=== PATIENT | female | born 1940 | race Two or more races ===

== ENCOUNTER 2017-03-30 13:52 | Outpatient (CLI) | payer MEDICARE, OTHER ==
[~2017-03-30 13:52] MED LIST: CALCIUM 500 +1 EAC7 PO; FISH OIL CAP1000 MG ORAL; HYDROCHLOROTHIA25 MG ORAL
[2017-03-30 14:21] VITALS: BP 148/61
[2017-03-30] MEDS ORDERED: LOSARTAN POTASS50 MG ORAL (14:28)
[2017-03-30] MEDS ORDERED: OMEPRAZOLE40 M1 ORAL (14:28)
[2017-03-30] MEDS ORDERED: IBUPROFEN600 MG ORAL (14:28)
[2017-03-30] MEDS ORDERED: ECOTRIN81 MG PO (14:28)
[2017-03-30] MEDS ORDERED: DICLOFENAC SOD100 G1 TP (14:28)
--- NOTE | 2017-03-30 15:29 | GI Initial Consult Note ---
Gina Delgado N.PAlyssa 03/30/17 1529: History of Present Illness General Date patient seen: Mar 30, 2017 Time patient seen: 15:20 Referring physician: FUENTES DAVILA Reason for Consultation: ANEMIA Present Illness HPI 76 year old female patient referred by Dr. Davila to evaluate anemia; Hgb drop to 10.8. She presents today with no general GI complaints. Noted on labs to have iron deficiency. Last colonoscopy was in 09/2014 with no evidence of polyps, diverticulosis, internal hemorrhoids. No changes in bowel habits. Denies weight loss. Home Meds Reported Medications Omeprazole (OMEPRAZOLE) 40 Mg Capsule.dr, 40 MG ORAL DAILY, CAP 03/30/17 Ibuprofen* (MOTRIN*) 600 Mg Tablet, 400 MG ORAL PRN Y for For Pain, #30 TAB 03/30/17 Aspirin (ECOTRIN) 81 Mg Tablet.dr, 81 MG PO DAILY, TAB 03/30/17 Losartan Potassium* (LOSARTAN POTASSIUM*) 50 Mg Tablet, 50 MG ORAL DAILY, TAB 03/30/17 Diclofenac Sodium (Diclofenac Sodium) 100 Gm Gel..gram., 100 GM TP PRN, GM 03/30/17 Fish Oil (Fish Oil 1,000 mg Capsule) 1,000 Mg Cap, 1000 MG ORAL BID, CAP 07/30/14 Hydrochlorothiazide* (HYDROCHLOROTHIAZIDE*) 25 Mg Tablet, 25 MG ORAL DAILY, TAB 07/30/14 Discontinued Reported Medications Calcium Carbonate/Vitamin D3 (Calcium 500 + Vit D3 400 Tab) 1 Each Tablet, 1 EACH PO DAILY, TAB 07/30/14 Med list reviewed/reconciled: Yes Allergies: Coded Allergies: No Known Allergies (Unverified , 07/29/14) Patient History History Provided By: Patient, Medical Record PMH Narrative HTN elevated cholesterol osteopenia h/o of colonic polyps anemia tubular adenoma of colon PSHx Biopsy breast (april 2014) Social History: Denies: alcohol use, drug use, other, smoking Review of Systems All Other Systems: limited Physical Exam Vital Signs Date Time Temp Pulse Resp B/P Pulse Ox O2 Delivery O2 Flow Rate FiO2 03/30/17 14:21 97.8 64 16 148/61 100 Sp02 EP Interpretation: reviewed General Appearance: well appearing, no apparent distress, alert Head: normocephalic EENT: normal ENT inspection Neck: full range of motion, supple Respiratory: normal breath sounds, no respiratory distress Cardiovascular: normal peripheral pulses, normal rate Gastrointestinal: normal inspection, non tender, soft, normal bowel sounds Genitourinary: normal inspection Neurologic: normal inspection, alert, oriented x3, responsive Psychiatric: normal inspection, judgement/insight normal, memory normal Skin: normal inspection, normal color, no rash, warm/dry Lymphatic: normal inspection, no adenopathy GI: Plan Problems: (1) Iron deficiency (2) Colonoscopy planned (3) Hx of colonic polyp (4) HTN (hypertension) (5) Osteoporosis Plan EGD/colonoscopy scheduled for 04/12/17. - [facility] & [employer] prep instructions given and acknowledged. Seen with Dr. Mcneil. Thank you for referring this patient. TOMAS MCNEIL 03/31/17 1032: History of Present Illness Present Illness Home Meds Reported Medications Omeprazole (OMEPRAZOLE) 40 Mg Capsule.dr, 40 MG ORAL DAILY, CAP 03/30/17 Ibuprofen* (MOTRIN*) 600 Mg Tablet, 400 MG ORAL PRN Y for For Pain, #30 TAB 03/30/17 Aspirin (ECOTRIN) 81 Mg Tablet.dr, 81 MG PO DAILY, TAB 03/30/17 Losartan Potassium* (LOSARTAN POTASSIUM*) 50 Mg Tablet, 50 MG ORAL DAILY, TAB 03/30/17 Diclofenac Sodium (Diclofenac Sodium) 100 Gm Gel..gram., 100 GM TP PRN, GM 03/30/17 Fish Oil (Fish Oil 1,000 mg Capsule) 1,000 Mg Cap, 1000 MG ORAL BID, CAP 07/30/14 Hydrochlorothiazide* (HYDROCHLOROTHIAZIDE*) 25 Mg Tablet, 25 MG ORAL DAILY, TAB 07/30/14 Discontinued Reported Medications Calcium Carbonate/Vitamin D3 (Calcium 500 + Vit D3 400 Tab) 1 Each Tablet, 1 EACH PO DAILY, TAB 07/30/14 Allergies: Coded Allergies: No Known Allergies (Unverified , 07/29/14) GI: Plan Plan The patient was seen and examined at bedside and all new and available data was reviewed in the patients chart. I agree with the above findings, impression and plan. (Patient seen earlier today. Signature stamp does not reflect patient encounter time.). -Tomas Delgado,[facility] Jose N.P. Mar 30, 2017 15:29 TOMAS MCNEIL Mar 31, 2017 10:32
== END 2017-03-30 14:45 | disposition home or self-care (01) ==
LOC: PAN 13:52
DX: I10 Essential (primary) hypertension (principal); E61.1 Iron deficiency; M81.0 Age-related osteoporosis without current pathological fracture; Z86.010 Personal history of colon polyps; Z79.82 Long term (current) use of aspirin
CPT/HCPCS: 99201

== ENCOUNTER 2017-04-12 07:22 | Day surgery (SDC) | payer MEDICARE, OTHER ==
[~2017-04-12] VITALS: Ht 157.5 cm; Wt 59.4 kg
[2017-04-12] VITALS (8 sets, daily range): BP systolic 112–147; BP diastolic 55–78
[~2017-04-12 07:22] MED LIST changes: +AMLODIPINE BES2.5 MG ORAL; +DICLOFENAC SOD100 G1 TP; +ECOTRIN81 MG PO; +IBUPROFEN600 MG ORAL; +LOSARTAN POTASS50 MG ORAL; +OMEPRAZOLE40 M1 ORAL
--- NOTE | 2017-04-12 08:42 | Pre-Procedure Note/Attestation ---
Pre-Procedure Note/Attestation Complete Prior to Procedure Planned Procedure: not applicable Procedure Narrative: esophagogastroduodenoscopycolon Indications for Procedure Pre-Operative Diagnosis: anemia Attestation I attest that I discussed the nature of the procedure; its benefits; risks and complications; and alternatives (and the risks and benefits of such alternatives ), prior to the procedure, with the patient (or the patient's legal claims representative). I attest that, if there was a reasonable possibility of needing a blood transfusion, the patient (or the patient's legal claims representative) was given the [facility] standardized written summary, pursuant to the [place] Blood Safety Act ([place] Health and Safety Code # 1645, as amended). I attest that I re-evaluated the patient just prior to the surgery and that there has been no change in the patient's H&P, except as documented below: RIGOBERTO MCNEIL Apr 12, 2017 08:42
--- NOTE | 2017-04-12 08:42 | Short Stay Surgery H&P ---
History of Present Illness History of Present Illness Chief Complaint see recent consult note HPI Rudy De La Rosa is a 76 year old female who was admitted on for Anemia Patient History Allergies: Coded Allergies: No Known Allergies (Unverified , 07/29/14) PAST MEDICAL HISTORY: Past Surgeries: Social History: Medication History Scheduled Amlodipine Besylate* (Amlodipine Besylate*), 2.5 MG ORAL DAILY, (Reported) Aspirin (Ecotrin), 81 MG PO DAILY, (Reported) Hydrochlorothiazide* (Hydrochlorothiazide*), 25 MG ORAL DAILY, (Reported) Scheduled PRN Ibuprofen* (Motrin*), 400 MG ORAL PRN PRN for For Pain, (Reported) Discontinued Medications Diclofenac Sodium (Diclofenac Sodium), 100 GM TP PRN, (Reported) Discontinued Reason: Pt stopped taking med Fish Oil (Fish Oil 1,000 mg Capsule), 1,000 MG ORAL BID, (Reported) Discontinued Reason: Pt stopped taking med Losartan Potassium* (Losartan Potassium*), 50 MG ORAL DAILY, (Reported) Discontinued Reason: Pt stopped taking med Omeprazole (Omeprazole), 40 MG ORAL DAILY, (Reported) Discontinued Reason: Pt stopped taking med Physical Exam Vital Signs Last Vital Signs Date Time Temp Pulse Resp B/P Pulse Ox O2 Delivery O2 Flow Rate FiO2 04/12/17 07:47 97.0 65 20 138/65 100 Room Air Plan Attestation Are the patient's medical conditions optimized for surgery? RIGOBERTO MCNEIL Apr 12, 2017 08:42
--- NOTE | 2017-04-12 08:57 | Anethesia Preoperative Eval ---
Anesthesia Pre-op PMH/ROS General Date of Evaluation: Apr 12, 2017 Time of Evaluation: 08:25 Anesthesiologist: stanford ASA Score: ASA 2 Mallampati Score Class I : Soft palate, uvula, fauces, pillars visible Class II: Soft palate, uvula, fauces visible Class III: Soft palate, base of uvula visible Class IV: Only hard plate visible Mallampati Classification: Class II Surgeon: jv Diagnosis: anemia Surgical Procedure: egd/colonoscopy Anesthesia History: none Social History: smoking - nonsmoker Family History: no anesthesia problems Allergies: Coded Allergies: No Known Allergies (Unverified , 07/29/14) Medications: see eMAR Past Medical History Cardiovascular: Reports: HTN Musculoskeletal/Integumentary: Reports: OA Anesthesia Pre-op Phys. Exam Physician Exam Last Vital Signs Date Time Temp Pulse Resp B/P Pulse Ox O2 Delivery O2 Flow Rate FiO2 04/12/17 07:47 97.0 65 20 138/65 100 Room Air Constitutional: NAD Neurologic: CN 2-12 intact Cardiovascular: RRR Respiratory: CTA Gastrointestinal: S/NT/ND Airway Exam Mallampati Score: Class II MO: full Neck: supple TMD: 2fb ROM: full Anesthesia Pre-op A/P Risk Assessment & Plan Assessment: anemia Plan: egd/colonoscopy Status Change Before Surgery: No Pre-Antibiotics Drug: RATNA Maier Apr 12, 2017 08:57
[2017-04-12] MEDS ORDERED: Lidocaine 1% MPF 10mg/ml 5ml ONE (09:00)
[2017-04-12] MEDS ORDERED: Propofol 10mg/ml 20ml IV ONE (09:00)
--- NOTE | 2017-04-12 09:01 | Immediate Post-Op Evaluation ---
Immediate Post-Op Evalulation Immediate Post-Op Evalulation Procedure: egd/colonoscopy Date of Evaluation: Apr 12, 2017 Time of Evaluation: 09:51 IV Fluids: 0.9ns 200ml Blood Products: none Estimated Blood Loss: negligible Blood Pressure Systolic: 139 Blood Pressure Diastolic: 70 Pulse Rate: 64 Respiratory Rate: 18 O2 Sat by Pulse Oximetry: 100 Temperature (Fahrenheit): 96.7 Pain Score (1-10): 0 Nausea: No Vomiting: No Complications none Patient Status: awake, reacts, patent Hydration Status: adequate Drug: RATNA Maier Apr 12, 2017 09:01
--- NOTE | 2017-04-12 09:14 | Endoscopy Procedure Note ---
Endoscopy Procedure Note Indication for Procedure: anemia Procedures Performed: EGD, colonoscopy Operative Findings/Diagnosis: gastritis, hemorrhoids Specimen: yes Pt Tolerated Procedure Well: Yes Estimated Blood Loss: none Anesthesiologist: debbie ellison Anesthesia: MAC Implant(s) used?: No 50 yrs or older w/o bx or poly: Yes 10yrs. F/U not recommended: Yes If not recommended, why?: Above average risk 10 yrs. F/U needed: Yes 18 years or older w/prev. colo: Yes <3yrs. since last colonoscopy: No RIGOBERTO MCNEIL Apr 12, 2017 09:14
--- NOTE | 2017-04-12 10:50 | 48 Hour Post Anesthesia Eval ---
Post Anesthesia Evaluation Procedure: egd/colonoscopy Date of Evaluation: Apr 12, 2017 Time of Evaluation: 10:48 Blood Pressure Systolic: 112 0: 78 Pulse Rate: 84 Respiratory Rate: 18 Temperature (Fahrenheit): 96.7 O2 Sat by Pulse Oximetry: 100 Airway: patent Nausea: No Vomiting: No Pain Intensity: 0 Hydration Status: adequate Cardiopulmonary Status: stable Mental Status/LOC: patient returned to baseline Post-Anesthesia Complications: none Follow-up care needed: N/A RATNA DEJESUS Apr 12, 2017 10:50
--- NOTE | 2017-04-12 16:36 | Cardiology Report ---
APPROVED REPORT EKG Measurement Heart [id number] VT [id number] Normal sinus rhythm Normal ECG
--- NOTE | 2017-04-12 21:40 | Operative Note - Dictated ---
SURGEON: Tomas Manuel M.D. PROCEDURE: Upper endoscopy with biopsy and colonoscopy. ANESTHESIOLOGIST: Shivani Alanis M.D. INSTRUMENT: Olympus adult flexible endoscope and colonoscope. INDICATION: Anemia. DESCRIPTION OF PROCEDURE: After informed consent was obtained and the patient was adequately sedated, Olympus upper endoscope was advanced from mouth into the second portion of the duodenum and retroflexion was performed in the stomach. The patient had evidence of diffuse gastritis. Random biopsy from antrum was obtained to rule out H. pylori infection. Otherwise, the rest of the colonic examination grossly within normal limits. At this time, the upper endoscope was retrieved and the patient was turned over for colonoscopy. History of present performed shows positive for internal hemorrhoid. Then, the scope was advanced from the rectum into the cecum the terminal ileum. Quality of prep was very good. The patient had normal colonoscopy examination. No obvious mass, polyp or any source of iron deficiency was seen. Retroflexion of rectum showed evidence of internal hemorrhoids. SUMMARY OF FINDINGS: 1. Gastritis, status post biopsy. 2. Internal hemorrhoids. RECOMMENDATIONS: 1. Follow up biopsies and treat accordingly. 2. We will recommend capsule endoscopy for evaluation of small intestine causes for iron deficiency anemia. Tomas Manuel M.D. DR: RICH JOB#: [id number] CC:
== END 2017-04-12 10:20 | disposition home or self-care (01) ==
LOC: GAS 07:22
DX: D64.9 Anemia, unspecified (principal); K29.50 Unspecified chronic gastritis without bleeding; B96.81 Helicobacter pylori [H. pylori] as the cause of diseases classified elsewhere; K64.8 Other hemorrhoids; I10 Essential (primary) hypertension; M19.90 Unspecified osteoarthritis, unspecified site; Z79.82 Long term (current) use of aspirin; Z79.899 Other long term (current) drug therapy
CPT/HCPCS: 43239; 45378; 93005; J2704; 94003; 94150

== ENCOUNTER 2017-04-20 13:34 | Outpatient (CLI) | payer MEDICARE, OTHER ==
[2017-04-20 13:45] VITALS: BP 122/52
--- NOTE | 2017-04-20 14:20 | GI Progress Note ---
Assessment/Plan Problems: (1) Anemia ICD Codes: D64.9 - Anemia, unspecified SNOMED: 963142557 (2) Helicobacter pylori (H. pylori) ICD Codes: A04.8 - Other specified bacterial intestinal infections SNOMED: 060043576 (3) Iron deficiency ICD Codes: E61.1 - Iron deficiency SNOMED: 09811766 (4) Hx of colonic polyp ICD Codes: Z86.010 - Personal history of colonic polyps SNOMED: 150723251 Status: stable Status Narrative Discussed with Dr. Manuel. Assessment/Plan Endoscopy Procedure Note Reviewed with patient. Indication for Procedure: anemia Procedures Performed: EGD, colonoscopy Operative Findings/Diagnosis: gastritis, hemorrhoids RIGOBERTO MANEUL - Apr 12, 2017 09:14 H. Pylori positive >> Rx Amox Biaxin, omeprazole SBCE to be scheduled to evaluate anemia, we will contact patient pt will require repeat breath test x 6 months after HP tx. Subjective Gastrointestinal/Abdominal: Reports: no symptoms Objective Last 24 Hour Vital Signs Date Time Temp Pulse Resp B/P Pulse Ox O2 Delivery O2 Flow Rate FiO2 04/20/17 13:45 98.1 63 16 122/52 General Appearance: no apparent distress, alert Cardiovascular: normal rate Respiratory/Chest: normal breath sounds, no respiratory distress Abdominal Exam: normal bowel sounds, non tender, soft Extremities: normal range of motion Gina Delgado N.P. Apr 20, 2017 14:20
== END 2017-04-20 14:05 | disposition home or self-care (01) ==
LOC: PAN 13:34
DX: D64.9 Anemia, unspecified (principal); A04.8 Other specified bacterial intestinal infections; E61.1 Iron deficiency; Z86.010 Personal history of colon polyps
CPT/HCPCS: 99211

== ENCOUNTER 2017-10-10 09:03 | Outpatient (CLI) | payer MEDICARE, OTHER ==
[2017-10-10 09:24] VITALS: BP 143/58
[2017-10-10] MEDS ORDERED: ACETAMINOPHEN325 M1 ORAL (09:26)
--- NOTE | 2017-10-10 09:57 | GI Progress Note ---
Assessment/Plan Problems: (1) Hx of colonic polyp ICD Codes: Z86.010 - Personal history of colonic polyps SNOMED: 314837867 (2) Helicobacter pylori (H. pylori) ICD Codes: A04.8 - Other specified bacterial intestinal infections SNOMED: 605438497 (3) Anemia ICD Codes: D64.9 - Anemia, unspecified SNOMED: 930051050 (4) Iron deficiency ICD Codes: E61.1 - Iron deficiency SNOMED: 57179243 Status: stable Status Narrative Seen with Dr. Manuel. Assessment/Plan Endoscopy Procedure Note Reviewed with patient. Indication for Procedure: anemia Procedures Performed: EGD, colonoscopy Operative Findings/Diagnosis: gastritis, hemorrhoids RIGOBERTO MANUEL - Apr 12, 2017 09:14 s/p H. Pylori tx repeat Breath Test today labs drawn today >> CBC, CMP, iron panel will consider SBCE pending lab work up, will contact patient Subjective Gastrointestinal/Abdominal: Reports: no symptoms Subjective left flank pain x 4 days, tylenol does not help Objective Last 24 Hour Vital Signs Date Time Temp Pulse Resp B/P (MAP) Pulse Ox O2 Delivery O2 Flow Rate FiO2 10/10/17 09:24 97.8 75 16 143/58 General Appearance: WD/WN, no apparent distress, alert Cardiovascular: normal rate Respiratory/Chest: normal breath sounds, no respiratory distress Abdominal Exam: normal bowel sounds, non tender, soft Extremities: normal range of motion, non-tender Gina Delgado N.P. Oct 10, 2017 09:56
[2017-10-10 13:38] LABS: BASOPHILS % (AUTO) 0.6 % (0.0-2.0); EOSINOPHILS % (AUTO) 0.5 % (0.0-3.0); HEMATOCRIT 33.2 % (37.0-47.0); LYMPHOCYTES % (AUTO) 18.6 % (20.0-45.0); MEAN CORPUSCULAR VOLUME 92 FL (80-99); MONOCYTES % (AUTO) 6.2 % (1.0-10.0); NEUTROPHILS % (AUTO) 74.2 % (45.0-75.0); PLATELET COUNT 309 K/UL (150-450); RED BLOOD COUNT 3.63 M/UL (4.20-5.40); RED CELL DISTRIBUTION WIDTH 11.2 % (11.6-14.8); WHITE BLOOD COUNT 7.6 K/UL (4.8-10.8)
[2017-10-10 13:55] LABS: % IRON SATURATION 17 % (15-50); IRON 49 ug/dL (50-175); TOTAL IRON BINDING CAPACITY 295 ug/dL (250-450)
[2017-10-10 13:57] LABS: ALANINE AMINOTRANSFERASE 16 U/L (12-78); ALBUMIN 3.3 G/DL (3.4-5.0); ALBUMIN/GLOBULIN RATIO 0.8 (1.0-2.7); ALKALINE PHOSPHATASE 81 U/L (46-116); ANION GAP 10 mmol/L (5-15); ASPARTATE AMINO TRANSFERASE 20 U/L (15-37); BILIRUBIN,TOTAL 0.4 MG/DL (0.2-1.0); BLOOD UREA NITROGEN 17 mg/dL (7-18); CARBON DIOXIDE 26 MMOL/L (21-32); CHLORIDE 98 MMOL/L (98-107); POTASSIUM 3.5 MMOL/L (3.5-5.1); SODIUM 134 MMOL/L (136-145)
== END 2017-10-10 09:45 | disposition home or self-care (01) ==
LOC: PAN 09:03
DX: K29.70 Gastritis, unspecified, without bleeding (principal); Z86.010 Personal history of colon polyps; B96.81 Helicobacter pylori [H. pylori] as the cause of diseases classified elsewhere; D64.9 Anemia, unspecified; E61.1 Iron deficiency
CPT/HCPCS: 36415; 80053; 83013; 83540; 83550; 85025; G0463; 99212

== ENCOUNTER 2019-04-08 13:25 | Outpatient (CLI) | payer MEDICARE, OTHER ==
[~2019-04-08 13:25] MED LIST changes: +ACETAMINOPHEN325 M1 ORAL
--- NOTE | 2019-04-08 15:34 | General Progress Note ---
Assessment/Plan Problem List: (1) GERD (gastroesophageal reflux disease) ICD Codes: K21.9 - Gastro-esophageal reflux disease without esophagitis SNOMED: 040614928 (2) Iron deficiency ICD Codes: E61.1 - Iron deficiency SNOMED: 25492455 (3) Anemia ICD Codes: D64.9 - Anemia, unspecified SNOMED: 018314536 (4) HTN (hypertension) ICD Codes: I10 - Essential (primary) hypertension SNOMED: 90359658 (5) Osteoporosis ICD Codes: M81.0 - Age-related osteoporosis without current pathological fracture SNOMED: 30068837 (6) Helicobacter pylori (H. pylori) ICD Codes: A04.8 - Other specified bacterial intestinal infections SNOMED: 355183309 (7) Hx of colonic polyp ICD Codes: Z86.010 - Personal history of colonic polyps SNOMED: 450897476 Assessment/Plan: dexilant linzess 72 stool for FIT RTC one month Subjective ROS Limited/Unobtainable: Yes Allergies: Coded Allergies: No Known Allergies (Unverified , 07/29/14) Subjective constipation abd pain GERD Objective General Appearance: alert EENT: normal ENT inspection Neck: supple Cardiovascular: normal rate Respiratory/Chest: lungs clear Abdomen: normal bowel sounds, non tender, soft Extremities: non-tender Tomas Manuel MD Apr 08, 2019 15:34
[2019-04-08] MEDS ORDERED: LOSARTAN POTASS50 MG ORAL (16:29)
[2019-04-08] MEDS ORDERED: ZOLPIDEM TARTRA10 MG ORAL (16:29)
[2019-04-08 16:32] VITALS: BP 157/72
== END 2019-04-08 15:25 | disposition home or self-care (01) ==
LOC: PAN 13:25
DX: K21.9 Gastro-esophageal reflux disease without esophagitis (principal); E61.1 Iron deficiency; D64.9 Anemia, unspecified; I10 Essential (primary) hypertension; M81.0 Age-related osteoporosis without current pathological fracture; A04.8 Other specified bacterial intestinal infections; Z86.010 Personal history of colon polyps; K59.00 Constipation, unspecified